=== PATIENT | female | born 1985 | race Two or more races ===

== ENCOUNTER 2019-04-01 18:12 | Emergency (ER) | payer SELFPAY ==
[~2019-04-01] VITALS: Ht 160 cm; Wt 65.3 kg
[2019-04-01 19:10] LABS: BILIRUBIN,URINE NEGATIVE (NEG); CLARITY,URINE CLEAR; COLOR,URINE YELLOW; NITRITE,URINE NEGATIVE (NEG); PROTEIN,URINE NEGATIVE (NEG-TRACE); UROBILINOGEN,URINE 0.2 mg/dL (0.2 mg/dL)
[2019-04-01 19:15] LABS: U PREG PATIENT NEGATIVE (NEG)
--- NOTE | 2019-04-01 19:19 | PHYS DOC ---
Past Medical History Past Medical History: No Pertinent History Past Surgical History: No Surgical History Additional Information: Denies smoking Alcohol Use: None Drug Use: None Adult General Chief Complaint Chief Complaint: FLANK PAIN HPI HPI Patient is a 33 y/o female who presents with left sided flank pain that radiates LUQ abdominal pain that started 3 days ago. She complains of increased urgency to void and constipation. Denies dysuria, nausea, vomiting and diarrhea. She states this has happened a few times in a the past. Denies any history of kidney stones. LMP was 1 week ago. Severity is rated a 8-9/10. 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 Review of Systems Review of Systems Constitutional: Denies fever or chills Eyes: Denies redness or eye pain HENT: Denies nasal congestion or sore throat Respiratory: Denies cough or shortness of breath Cardiovascular: Denies chest pain or palpitations GI: Reports abdominal pain and constipation. Denies nausea and vomiting : Reports increased urgency to void, Denies dysuria Musculoskeletal: Denies back pain or joint pain; reports flank pain Neurologic: Denies headache, focal weakness or sensory changes Complete systems were reviewed and found to be within normal limits, except as documented in this note. Current Medications Current Medications Current Medications Medications (Trade) Dose Ordered Sig/Jose Start Time Stop Time Status Last Admin Dose Admin Ceftriaxone Sodium (Rocephin) 1 gm 1X ONCE 04/01/19 20:00 04/01/19 20:29 DC 04/01/19 20:01 1 GM Ketorolac Tromethamine (Toradol 15mg Vial) 15 mg 1X ONCE 04/01/19 19:30 04/01/19 20:29 DC 04/01/19 20:01 15 MG Metoclopramide HCl (Reglan Vial) 10 mg 1X ONCE 04/01/19 19:30 04/01/19 20:29 DC 04/01/19 20:01 10 MG Sodium Chloride 1,000 ml @ 1,000 mls/hr 1X ONCE 04/01/19 19:30 04/01/19 20:29 DC 04/01/19 20:00 1,000 MLS/HR Allergies Allergies Allergies Coded Allergies Type Severity Reaction Last Updated Verified No Known Drug Allergies 04/01/19 No Physical Exam Physical Exam Constitutional: Well developed, well nourished, mild acute distress, non-toxic appearance Neck: Normal range of motion, no tenderness, supple Cardiovascular: Heart rate normal, regular rhythm Lungs & Thorax: Bilateral breath sounds clear to auscultation, no wheezing Abdomen: Soft, Tenderness to palpation on left lower quadrant Skin: Warm, dry, no erythema, no rash Back: Tenderness to palpation to left flank Extremities: No tenderness, ROM intact, no edema Neurologic: Alert and oriented X 3, normal motor function, normal sensory function, no focal deficits noted Psychologic: Affect normal, judgement normal Current Patient Data Vital Signs Vital Signs Date Time Temp Pulse Resp B/P (MAP) Pulse Ox O2 Delivery O2 Flow Rate FiO2 04/01/19 20:30 88 16 107/58 (74) 100 Room Air 04/01/19 18:45 98.3 98.3 Lab Values Laboratory Tests Test 04/01/19 18:38 04/01/19 19:47 Urine Collection Type Unknown Urine Color Yellow Urine Clarity Clear Urine pH 7.0 Urine Specific [place] 1.010 Urine Protein Negative mg/dL (NEG-TRACE) Urine Glucose (UA) Negative mg/dL (NEG) Urine Ketones (Stick) Negative mg/dL (NEG) Urine Blood Negative (NEG) Urine Nitrite Negative (NEG) Urine Bilirubin Negative (NEG) Urine Urobilinogen Dipstick 0.2 mg/dL (0.2 mg/dL) Urine Leukocyte Esterase Moderate (NEG) Urine RBC 1-2 /HPF (0-2) Urine WBC 11-20 /HPF (0-4) Urine Squamous Epithelial Cells Mod /LPF Urine Bacteria Moderate /HPF (0-FEW) Urine Test Negative (NEG) White Blood Count 11.5 x10^3/uL (4.0-11.0) H Red Blood Count 4.49 x10^6/uL (3.50-5.40) Hemoglobin 13.0 g/dL (12.0-15.5) Hematocrit 38.6 % (36.0-47.0) Mean Corpuscular Volume 86 fL (79-100) Mean Corpuscular Hemoglobin 29 pg (25-35) Mean Corpuscular Hemoglobin Concent 34 g/dL (31-37) Red Cell Distribution Width 12.9 % (11.5-14.5) Platelet Count 281 x10^3/uL (140-400) Neutrophils (%) (Auto) 70 % (31-73) Lymphocytes (%) (Auto) 24 % (24-48) Monocytes (%) (Auto) 4 % (0-9) Eosinophils (%) (Auto) 1 % (0-3) Basophils (%) (Auto) 1 % (0-3) Neutrophils # (Auto) 8.0 x10^3/uL (1.8-7.7) H Lymphocytes # (Auto) 2.8 x10^3/uL (1.0-4.8) Monocytes # (Auto) 0.5 x10^3/uL (0.0-1.1) Eosinophils # (Auto) 0.1 x10^3/uL (0.0-0.7) Basophils # (Auto) 0.1 x10^3/uL (0.0-0.2) Sodium Level 139 mmol/L (136-145) Potassium Level 3.9 mmol/L (3.5-5.1) Chloride Level 104 mmol/L (98-107) Carbon Dioxide Level 26 mmol/L (21-32) Anion Gap 9 (6-14) Blood Urea Nitrogen 10 mg/dL (7-20) Creatinine 0.7 mg/dL (0.6-1.0) Estimated GFR (Cockcroft-Gault) 96.4 BUN/Creatinine Ratio 14 (6-20) Glucose Level 97 mg/dL (70-99) Calcium Level 8.9 mg/dL (8.5-10.1) Magnesium Level 1.7 mg/dL (1.8-2.4) L Total Bilirubin 0.2 mg/dL (0.2-1.0) Aspartate Amino Transferase (AST) 15 U/L (15-37) Alanine Aminotransferase (ALT) 12 U/L (14-59) L Alkaline Phosphatase 72 U/L (46-116) Total Protein 7.6 g/dL (6.4-8.2) Albumin 3.3 g/dL (3.4-5.0) L Albumin/Globulin Ratio 0.8 (1.0-1.7) L Lipase 144 U/L (73-393) Laboratory Tests 04/01/19 19:47 Laboratory Tests 04/01/19 19:47 EKG EKG [] Radiology/Procedures Radiology/Procedures PROCEDURE: CT ABDOMEN PELVIS WO CONTRAST Exam: CT abdomen and pelvis without contrast INDICATION: Left flank pain TECHNIQUE: Sequential axial images through the abdomen and pelvis obtained without IV contrast. Sagittal and coronal reformatted images were reconstructed from the axial data and reviewed. Comparisons: None FINDINGS: Heart size is normal. No pericardial effusion. Visualized lung bases are clear. No pleural effusion. Evaluation of the solid organs is limited secondary to noncontrast technique. Liver, spleen, pancreas, gallbladder and adrenals are unremarkable. No perinephric inflammation or hydronephrosis. No renal or ureteral calculi are identified. Bladder is decompressed not well evaluated. Uterus is not enlarged. Cystic lesion at the left adnexa, likely dominant cyst in the left ovary measuring 3.1 cm. Large and small bowel are unremarkable. Appendix is normal. No free intra-abdominal air or fluid. No obstruction. Abdominal aorta has a normal course and caliber. No enlarged abdominal lymph nodes are identified. No suspicious osseous lesions or acute fractures. IMPRESSION: 1. No renal or ureteral calculi. No evidence for obstructive uropathy. 2. Cystic lesion at the left adnexa measuring 3.1 cm, likely cyst in the left ovary however incompletely characterized on CT. Exposure: One or more of the following in the visualized dose reduction techniques were utilized for this examination: 1. Automated exposure control 2. Adjustment of the MA and/or KV according to patient size 3. Use of iterative of reconstructive technique Electronically signed by: Winsome Villafana MD (04/01/2019 7:57 PM) [facility] [place] [facility] [place] Course & Med Decision Making Course & Med Decision Making Pt is a 33 y/o female who presents with left flank pain that radiates to her LLQ. Associated increased urgency to void and constipation. Denies any dysuria, nausea, vomiting, and diarrhea. LMP was 1 week ago, urine negative. UA shows sign of infection but possible contamination, given pt's history and presentation will give IM Rocephin. CT with no sign of renal calculi but left ovarian cyst present. Will d/c with tramadol, keflex and ibuprofen. Patient stable for discharge with outpatient follow-up with PCP. Discussed findings and plan with patient and family, who acknowledge understanding and agreement. Dragon Disclaimer Dragon Disclaimer This electronic medical record was generated, in whole or in part, using a voice recognition dictation system. Departure Departure Impression: Primary Impression: Pyelonephritis Additional Impression: Ovarian cyst Disposition: HOME, SELF-CARE Condition: STABLE Referrals: VAMSHI KING Jr, MD Patient Instructions: Ovarian Cyst, [id number], Pyelonephritis, Adult, [id number] Scripts Cephalexin (KEFLEX) 500 Mg Capsule 500 MG PO TID for 7 Days, #21 CAP Prov: DREW BANDA DO 04/01/19 Tramadol Hcl (TRAMADOL HCL) 50 Mg Tablet 50 MG PO Q6HRS PRN for PAIN, #10 TAB Prov: DREW BANDA DO 04/01/19 Ibuprofen (IBUPROFEN) 600 Mg Tablet 600 MG PO Q8HRS PRN for PAIN, #20 TAB Prov: DREW BANDA DO 04/01/19 Problem Qualifiers Additional Impression: Ovarian cyst Laterality: left Qualified Codes: N83.202 - Unspecified ovarian cyst, left side DREW BANDA DO Apr 01, 2019 19:19
[2019-04-01] MEDS ORDERED: IV NORMAL SALINE 1000ML BAG 1,000 ML IV ONE (19:30)
[2019-04-01] MEDS ORDERED: METOCLOPRAMIDE HCL 10 MG/2 ML VIAL. IVP ONE (19:30)
[2019-04-01] MEDS ORDERED: KETOROLAC 15 MG/ML VIAL. IVP ONE (19:30)
[2019-04-01 19:46] LABS: BACTERIA,URINE MODERATE /HPF (0-FEW); SQUAMOUS EPITHELIAL CELL,UR MOD /LPF
[2019-04-01 19:55] LABS: BASO # 0.1 x10^3/uL (0.0-0.2); BASO % 1 % (0-3); EOS # 0.1 x10^3/uL (0.0-0.7); EOS % 1 % (0-3); HEMATOCRIT 38.6 % (36.0-47.0); LYMPH # 2.8 x10^3/uL (1.0-4.8); LYMPH % 24 % (24-48); MEAN CORPUSCULAR HEMOGLOBIN 29 pg (25-35); MEAN CORPUSCULAR HGB CONC 34 g/dL (31-37); MEAN CORPUSCULAR VOLUME 86 fL (79-100); MONO # 0.5 x10^3/uL (0.0-1.1); MONO % 4 % (0-9); NEUT % 70 % (31-73); PLATELET COUNT 281 x10^3/uL (140-400); RED BLOOD COUNT 4.49 x10^6/uL (3.50-5.40); RED CELL DISTRIBUTION WIDTH 12.9 % (11.5-14.5); WHITE BLOOD COUNT 11.5 x10^3/uL (4.0-11.0)
[2019-04-01] MEDS ORDERED: cefTRIAXone IV Push 1 GM VIAL. IVP ONE (20:00)
--- NOTE | 2019-04-01 20:00 | RAD ---
Exam: CT abdomen and pelvis without contrast INDICATION: Left flank pain TECHNIQUE: Sequential axial images through the abdomen and pelvis obtained without IV contrast. Sagittal and coronal reformatted images were reconstructed from the axial data and reviewed. Comparisons: None FINDINGS: Heart size is normal. No pericardial effusion. Visualized lung bases are clear. No pleural effusion. Evaluation of the solid organs is limited secondary to noncontrast technique. Liver, spleen, pancreas, gallbladder and adrenals are unremarkable. No perinephric inflammation or hydronephrosis. No renal or ureteral calculi are identified. Bladder is decompressed not well evaluated. Uterus is not enlarged. Cystic lesion at the left adnexa, likely dominant cyst in the left ovary measuring 3.1 cm. Large and small bowel are unremarkable. Appendix is normal. No free intra-abdominal air or fluid. No obstruction. Abdominal aorta has a normal course and caliber. No enlarged abdominal lymph nodes are identified. No suspicious osseous lesions or acute fractures. IMPRESSION: 1. No renal or ureteral calculi. No evidence for obstructive uropathy. 2. Cystic lesion at the left adnexa measuring 3.1 cm, likely cyst in the left ovary however incompletely characterized on CT. Exposure: One or more of the following in the visualized dose reduction techniques were utilized for this examination: 1. Automated exposure control 2. Adjustment of the MA and/or KV according to patient size 3. Use of iterative of reconstructive technique Electronically signed by: Winsome Villafana MD (04/01/2019 7:57 PM) [facility]
[2019-04-01 20:15] LABS: CALCIUM 8.9 mg/dL (8.5-10.1); CREATININE 0.7 mg/dL (0.6-1.0); GFR 96.4; POTASSIUM 3.9 mmol/L (3.5-5.1)
[2019-04-01 20:20] LABS: ALBUMIN 3.3 g/dL (3.4-5.0); ALBUMIN/GLOBULIN RATIO 0.8 (1.0-1.7); MAGNESIUM 1.7 mg/dL (1.8-2.4); TOTAL BILIRUBIN 0.2 mg/dL (0.2-1.0); TOTAL PROTEIN 7.6 g/dL (6.4-8.2)
[2019-04-01 20:30] VITALS: BP 107/58
[2019-04-01] MEDS ORDERED: IBUP-1007 PO (20:41)
[2019-04-01] MEDS ORDERED: TRAM50TA PO (20:41)
[2019-04-01] MEDS ORDERED: CEPH-264 PO (20:41)
== END 2019-04-01 20:58 | disposition home or self-care (01) ==
LOC: ER 18:12
DX: N12 Tubulo-interstitial nephritis, not specified as acute or chronic (principal); N83.202 Unspecified ovarian cyst, left side
CPT/HCPCS: 36415; 74176; 80053; 81001; 81025; 83690; 83735; 85025; 87086; 96374; 96375; 99285; J0696; J1885; J2765; J7030

== ENCOUNTER 2021-03-12 09:52 | Emergency (ER) | payer SELFPAY ==
[~2021-03-12] VITALS: Ht 160 cm; Wt 71.8 kg
[~2021-03-12 09:52] MED LIST: CEPH-264 PO; IBUP-1007 PO; TRAM50TA PO
[2021-03-12 12:03] VITALS: BP 113/57
[2021-03-12] MEDS ORDERED: ERYT1OIN3 OD (12:23)
--- NOTE | 2021-03-12 12:24 | PHYS DOC ---
Past Medical History Past Medical History: No Pertinent History (MARYCHUY WILSON APRN) Past Surgical History: No Surgical History (MARYCHUY WILSON APRN) Smoking Status: Never Smoker Alcohol Use: None Drug Use: None (MARYCHUY WILSON APRN) General Adult EDM: Chief Complaint: EYE PROBLEMS HPI: HPI: She is a 35-year-old female who presents to the emergency department for redness, swelling and pain noted to her right lower eyelid that started yesterday morning. She reports that it is a burning and itching pain. She rates it 6 out of 10. No treatment prior to arrival. Patient denies any injury or possible foreign body. She denies any fevers, nasal congestion or drainage or vision changes. (MARYCHUY WILSON APRN) Review of Systems: Review of Systems: 14 body systems of the review of systems have been reviewed. See HPI for pertinent positive and negative responses, otherwise all other systems are negative, nonpertinent or noncontributory (MARYCHUY WILSON APRN) Heart Score: C/O Chest Pain: N/A Risk Factors: Risk Factors: DM, Current or recent (<one month) smoker, HTN, HLP, family history of CAD, obesity. Risk Scores: Score 0 - 3: 2.5% MACE over next 6 weeks - Discharge Home Score 4 - 6: 20.3% MACE over next 6 weeks - Admit for Clinical Observation Score 7 - 10: 72.7% MACE over next 6 weeks - Early Invasive Strategies (MARYCHUY WILSON APRN) Allergies: Allergies: Allergies Coded Allergies Type Severity Reaction Last Updated Verified No Known Drug Allergies 04/01/19 No (MARYCHUY WILSON APRN) Physical Exam: PE: Constitutional: Well developed, well nourished, no acute distress, non-toxic appearance. [] HENT: Normocephalic, atraumatic, bilateral external ears normal, oropharynx moist, no oral exudates, nose normal. [] Eyes: PERRL, EOMI, conjunctiva normal, small blister noted to right lower eyelid with surrounding redness and yellow/white drainage noted Neck: Normal range of motion, no stridor Cardiovascular: Normal peripheral perfusion Lungs & Thorax: Normal work of breathing, no tachypnea Abdomen: Soft and flat Skin: Warm, dry, no erythema, no rash. [] Back: Normal range of motion Extremities: No tenderness, no cyanosis, no clubbing, ROM intact, no edema. [] Neurologic: Alert and oriented X 3, normal motor function, normal sensory function, no focal deficits noted. [] Psychologic: Affect normal, judgement normal, mood normal. [] (MARYCHUY WILSON APRN) EKG: EKG: [] (MARYCHUY WILSON APRN) Radiology/Procedures: Radiology/Procedures: [] (MARYCHUY WILSON APRN) Course & Med Decision Making: Course & Med Decision Making Pertinent Labs and Imaging studies reviewed. (See chart for details) Patient presents to the emergency department for redness, swelling and pain to her right lower eyelid. It appears that patient has a stye/blepharitis to her right lower eyelid. Patient advised to apply warm compresses, avoid eye make-up and apply antibiotic ointment that she will be discharged home with. Advised to follow-up with her primary care provider. I discussed with patient all findings as well as the need to follow-up with PCP for further evaluation and treatment or return to the ER if any new or worsening symptoms. Strict return precautions were also discussed at length. Patient voiced understanding and agreement with the plan. Patient is hemodynamically stable at the time of disposition. (MARYCHUY WILSON APRN) Dragon Disclaimer: Dragon Disclaimer: This electronic medical record was generated, in whole or in part, using a voice recognition dictation system. (MARYCHUY WILSON APRN) Departure Departure Impression: Primary Impression: Stye Qualified Codes: H00.012 - Hordeolum externum right lower eyelid Disposition: HOME / SELF CARE / HOMELESS Condition: GOOD Referrals: NO PCP (PCP) Patient Instructions: Sty Additional Instructions: You were seen in the emergency department today for redness, pain and itching to right lower thigh. It appears that you have a stye and a localized infection. Please apply warm compresses to help with the swelling. Avoid wearing eye make-up. You are being discharged home with an antibiotic eye ointment, use this as directed. Please follow-up with your primary care provider tomorrow regarding your ER visit. Return to the ER if you develop worsening of your eye swelling, loss of blurred vision or confusion, high fevers refractory to tr eatment or any new or worsening concerns. EMERGENCY DEPARTMENT GENERAL DISCHARGE INSTRUCTIONS Thank you for coming to [facility] Emergency Department (ED) today and trusting us with you care. We trust that you had a positive experience in our Emergency Department. If you wish to speak to the department management, you may call the Director at [phone]. YOUR FOLLOW UP INSTRUCTIONS ARE FOLLOWS: 1. Do you have a private Doctor? If you do not have a private doctor, please ask for a resource list of physicians or clinics that may be able to assist you with follow up care. 2. The Emergency Physicain has interpreted your x-rays. The X-Ray specialist will also review them. If there is a change in the findings, you will be notified in 48 hours when at all possible. 3. A lab test or culture has been done, your results will be reviewed and you will be notified if you need a change in treatment. ADDITIONAL INSTRUCTIONS AND INFORMATION: 1. Your care today has been supervised by a physician who is specially trained in emergency care. Many problems require more than one evaluation for a complete diagnosis and treatment. We recommend that you schedule your follow up appointment as recommended to ensure complete treatment of you illness or injury. If you are unable to obtain follow up care and continue to have a problem, or if your condition worsens, we recommend that you return to the ED. 2. We are not able to safely determine your condition over the phone nor are we able to give sound medical advice over the phone. For these safety reasons, if you call for medical advice we will ask you to come to the ED for further evaluation. 3. If you have any questions regarding these discharge instructions please call the ED at [phone]. SAFETY INFORMATION: In the interest of safety, wellness, and injury prevention; we encourage you to wear your sealbelt, if you smoke; quite smoking, and we encourage family to use a protective helmet for bicycling and other sporting events that present an increased risk for head injury. IF YOUR SYMPTOMS WORSEN OR NEW SYMPTOMS DEVELOP, OR YOU HAVE CONCERNS ABOUT YOUR CONDITION; OR IF YOUR CONDITION WORSENS WHILE YOU ARE WAITING FOR YOUR FOLLOW UP APPOINTMENT; EITHER CONTACT YOUR PRIMARY CARE DOCTOR, THE PHYSICIAN WHOSE NAME AND NUMBER YOU WERE GIVEN, OR RETURN TO THE ED IMMEDIATELY. Scripts Erythromycin Base (Erythromycin) 1 Gm Oint...g. 1 GM OD Q6HRS for eye infection for 7 Days, #1 MISC 0 Refills apply 1/2 inch along lash line 4-6 times per day for 7 days Prov: MARYCHUY WILSON APRN 03/12/21 Attending Signature I have participated in the care of this patient and I have reviewed and agree with all pertinent clinical information above including history, exam, and recommendations. (JU ROJAS DO) MARYCHUY WILSON APRN Mar 12, 2021 12:24 JU ROJAS DO Mar 12, 2021 12:27
== END 2021-03-12 12:45 | disposition home or self-care (01) ==
LOC: ER 09:52
DX: H00.012 Hordeolum externum right lower eyelid (principal)
CPT/HCPCS: 99283